=== PATIENT | female | born 1995 ===

== ENCOUNTER 2023-07-12 15:16 | Outpatient (CLI) | payer BC, SELFPAY ==
--- NOTE | ~2023-07-12 | MR_ITS ---
EXAMINATION: MR knee RT wo con DATE: 07/12/2023 15:48 INDICATION: Chronic right knee pain TECHNIQUE: Magnetic resonance imaging (MRI) of the right knee was performed without intravenous contr ast. Sequences included coronal PD-weighted FSE, coronal PD-weighted FS FSE, sagittal T2-weighted FS E, sagittal PD-weighted FS FSE and axial PD weighted fat saturated FSE. COMPARISON: None. FINDINGS: Medial compartment: Medial meniscus is normal. Articular cartilage is normal. Lateral compartment: Lateral meniscus is normal. Articular cartilage is normal. Patellofemoral compartment: Small region of partial-thickness chondral ulceration along the inferolateral margin of the lateral p atellar facet. Patellofemoral cartilage is otherwise normal. Ligaments and tendons: Anterior and posterior cruciate ligaments are normal. The medial collateral ligament and fibular javier ateral ligament complex are normal. Patellar tendon is normal. Mild quadriceps tendinopathy. There is more prominent tendinopathy and small heterotopic ossicles at the patellar side of the lateral manning lofemoral retinaculum. The visualized medial and lateral hamstring tendons as well as the iliotibial band are normal. Fluid: Physiologic amount of fluid in the joint space. No loose osteochondral bodies identified. Osseous/other: Normal marrow signal. No fracture or pathologic marrow replacing process. There is edema in the infra patellar fat pad suggestion of fat pad impingement syndrome which is located along the lateral margin of the inferior patella near the region of chondromalacia and patellofemoral retinacular thickening. IMPRESSION: 1. Edema in the infrapatellar fat pad along the inferolateral margin of the lateral patellar facet wh ere there is small region of partial-thickness chondral ulceration with interstitial thickening and h eterotopic ossification at the patellar side of the lateral patellofemoral retinaculum. Constellation of findings is suggestive of fat pad impingement syndrome and possibly patellofemoral maltracking. Reviewed, dictated and finalized at location B. IMPRESSION: 1. Edema in the infrapatellar fat pad along the inferolateral margin of the lat eral patellar facet where there is small region of partial-thickness chondral u lceration with interstitial thickening and heterotopic ossification at the elliott llar side of the lateral patellofemoral retinaculum. Constellation of findings is suggestive of fat pad impingement syndrome and possibly patellofemoral maltr acking.
== END 2023-07-12 15:17 ==
LOC: GOSHIMG 15:20
PROVIDERS: Visit Provider Orthopaedic Surgery
DX: M79.4 Hypertrophy of (infrapatellar) fat pad (principal); G89.29 Other chronic pain
CPT/HCPCS: 73721